=== PATIENT | female | born 1985 | race Caucasian/White ===

== ENCOUNTER 2019-08-14 09:31 | Emergency (ER) | payer OTHER ==
[~2019-08-14] VITALS: Ht 167.6 cm; Wt 65.8 kg
[2019-08-14] MEDS ORDERED: LORAZEPAM INJ 2 MG/ML VIAL IM ONE (10:00)
[2019-08-14] MEDS ORDERED: LORAZEPAM INJ 2 MG/ML VIAL ONE (10:03)
--- NOTE | 2019-08-14 11:09 | NUR ---
Patient eloped from facility. ER MD notified.
[2019-08-14 11:19] VITALS: BP 132/74
--- NOTE | 2019-08-14 11:19 | NUR ---
Patient eloped from facility. ER MD notified.
== END 2019-08-14 11:19 | disposition home or self-care (01) ==
LOC: ER 09:33
DX: F11.23 Opioid dependence with withdrawal (principal)
CPT/HCPCS: 96372; 99283; J2060